=== PATIENT | female | born 1995 | race Caucasian/White ===

== ENCOUNTER → 2022-06-25 17:51 | Outpatient (CLI) | payer OTHER, SELFPAY ==
--- NOTE | ~2022-06-25 | XR_ITS ---
EXAM: XR foot LT min 3V DATE: 06/25/2022 18:08 HISTORY: ACUTE FOOT PAIN, distal metatarsals . COMPARISON: None available. FINDINGS: Normal mineralization. No fracture or dislocation. No lytic or blastic lesion. Mild hallux valgus. Mild degenerative change at the first MTP joint. Plantar enthesopathy. No erosion or periost eal change. Soft tissues within normal limits. IMPRESSION: No acute osseous finding in the left foot. Reviewed, dictated and finalized at location K.
== END ==
PROVIDERS: PCP Family Medicine
DX: M79.672 Pain in left foot (principal)
CPT/HCPCS: 73630